=== PATIENT | female | born 2000 | race Hispanic/Latino ===

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

== ENCOUNTER → 2022-07-15 | Day surgery (SDC) | payer BC ==
[~2022-07-15] MED LIST changes: -FENTANYL CITRATE/PF 100MCG/2 ML INJ ONE; -HYOSCYAMINE SULFATE 0.5 MG/ML INJ ONE; -MIDAZOLAM HCL 2 MG/2 ML VIAL ONE; +SIMETHICONE 40 MG/0.6 ML BTL ONE; +SUGAMMADEX SODIUM 200 MG/2 ML VIAL IV ONE
[2022-07-15 09:10] VITALS: BP 114/70
== END | disposition home or self-care (01) ==
LOC: OR 06:37
PROVIDERS: ATTEND Internal Medicine Gastroenterology
DX: K51.90 Ulcerative colitis, unspecified, without complications (principal); R12 Heartburn
CPT/HCPCS: 45380; 81025; 83630; 83993; 86140; 87045; 87177; 87324; 87328; 87449; J2001; J2704; 45378